=== PATIENT | male | born 1950 | race Caucasian/White ===

== ENCOUNTER 2020-07-06 08:07 | Inpatient (IN) | payer OTHER ==
[~2020-07-06] VITALS: Ht 185.4 cm; Wt 65.3 kg
[~2020-07-06 08:07] MED LIST: ACETAMINOPHEN325 M1 PO; ADVAIR HFA 1112 UNIT INH; ALBUTEROL SULFAT4 MG PO; AVELOX 400 MG400 MG PO; AZITHROMYCIN 2250 MG PO; COMBIVENT INH; CORICIDIN HBP1 EACH PO; DILANTIN100 MG PO; DOXYCYCLINE 10100 M1 PO; DUONEB 2.5-0.5 M3 ML INH; FEVERALL650 MG RECTAL; FLEXERIL PO; FOLIC ACID1 MG PO; LEVAQUIN 500 M500 M2 PO; LORAZEPAM 22 MG/1 ML PO; METHOTREXA25 MG/1 M7 INJECTION; METHOTREXA25 MG/1 ML SUBQ; METHOTREXATE 22.5 MG GT; METHOTREXATE 22.5 MG PO; MOBIC15 MG PO; MSL20MG/ML SUBLING; MUCINEX TA600 MG/TA1 PO; PREDNISONE 10 M10 M1 PO; PREDNISONE 20 M20 M1 PO; PRILOSEC 20 MG20 MG PO; SINGULAIR 10 MG10 M1 PO; SYMBICORT160 MCG/4. INH; TREXALL15 MG PO; TYLENOL325 MG PO; VITAMIN D-32000 UNI1 PO; ZESTRIL10 MG PO; ZPAK PO
[2020-07-06 08:10] VITALS: BP 166/119
[2020-07-06 09:08] LABS: HEMATOCRIT 54.4 % (42.0-52.0); HEMOGLOBIN 17.4 gm/dL (14.0-18.0); MCH 29.5 pg (26.0-34.0); MCV 92.1 fL (80.0-100.0); MPV 8.2 fl. (7.2-11.1); NUCLEATED RBCS 0 /100WBC; PLATELET COUNT* 298 thou/uL (150-400); RBC 5.91 mil/uL (4.50-6.00); RDW-CV 16.1 % (10.5-14.5); WBC 11.3 thou/uL (4.0-11.0)
[2020-07-06 09:18] LABS: CALCIUM 9.4 mg/dL (8.5-10.1); CREATININE 0.9 mg/dL (0.6-1.3); POTASSIUM 4.1 mmol/L (3.5-5.1)
[2020-07-06 09:23] LABS: ALBUMIN 2.3 g/dL (3.4-5.0); TOTAL BILIRUBIN 1.3 mg/dL (<0.1-1.0); TOTAL PROTEIN 7.5 g/dL (6.4-8.2)
[2020-07-06 09:23] LABS: APTT 25.5 Seconds (25.0-31.3); INR 1.1; PROTIME 11.9 Seconds (9.20-11.50)
--- NOTE | 2020-07-06 09:54 | EKG ---
[place] [address] ELECTROCARDIOGRAM REPORT Name: KAJAL RAI Room: [facility]#: [id number] Admission: 07/06/20 Attend Phys: Discharge: Date of : 50 Date of Service: 07/06/20813 Report #: [id number] THIS REPORT FOR: //name// [facility] ED Test Date: 2020-07-06 Test Time: 08:14:04 Pat Name: KAJAL RAI Department: Room: Gender: Game Room Attendant: [facility] : 1950 Requested By: Joseph Regalado Order Number: [id number] MD: Martin Borges Measurements Intervals [place] Rate: 119 P: 90 IN: 140 QRS: 66 QRSD: 135 T: 57 QT: 357 QTc: 503 Interpretive Statements Sinus tachycardia Right bundle branch block Compared to ECG 09/26/2014 17:28:04 Right bundle-branch block now present Atrial premature complex(es) no longer present Electronically Signed On 07-06-2020 9:54:12 PHARMACY ANCILLARY by Martin Borges [email or web address] <ELECTRONICALLY SIGNED> By: Martin Borges MD, FAC 07/06/20 0954 3 3 Martin Borges MD, [facility] /EPI
[2020-07-06 10:14] LABS: ABSOLUTE LYMPHOCYTES 0.6 thou/uL (0.8-5.3); ABSOLUTE NEUTROPHILS 10.7 thou/uL (1.6-8.1)
[2020-07-06 10:15] LABS: PLATELET ESTIMATE ADEQUATE
[2020-07-06 12:59] LABS: CLARITY HAZY; SOURCE PLEURAL FLUID; TOTAL VOLUME 1360 ml
[2020-07-06 14:01] LABS: BF LYMPHOCYTES 51 %; BF MONOCYTES 1 %; BF POLYS 24 %; BF TISSUE 24 /100 WBC; BODY FLUID BANDS 0 %; TOTAL CELL COUNT 880 /mm3
[2020-07-06 14:30] VITALS: BP 122/84
[2020-07-06 17:08] LABS: BE 0.6 mmol/L (-2 to +3); PO2 121.3 mmHg (75.0-100.0)
[2020-07-06 17:11] LABS: PCO2 101.9 mmHg (35.0-45.0); pH 7.145 (7.340-7.450)
[2020-07-06 18:33] VITALS: BP 139/93
[2020-07-06 19:44] LABS: BE 3.1 mmol/L (-2 to +3)
[2020-07-06 19:48] LABS: PCO2 86.2 mmHg (35.0-45.0); pH 7.223 (7.340-7.450)
[2020-07-06 19:52] VITALS: BP 116/78
[2020-07-06 21:00] VITALS: BP 140/94
[2020-07-07] VITALS (7 sets, daily range): BP systolic 96–174; BP diastolic 69–100
[2020-07-07 05:03] LABS: ABSOLUTE LYMPHOCYTES 0.2 thou/uL (0.8-5.3); ABSOLUTE MONOCYTES 0.2 thou/uL (0.0-1.2); ABSOLUTE NEUTROPHILS 7.5 thou/uL (1.6-8.1); BASOPHILS 0.3 %; HEMATOCRIT 49.6 % (42.0-52.0); LYMPHOCYTES 2.3 %; MCH 28.8 pg (26.0-34.0); MONOCYTES 2.3 %; MPV 8.1 fl. (7.2-11.1); NUCLEATED RBCS 0 /100WBC; PLATELET COUNT* 273 thou/uL (150-400); POLYS 95.1 %; RBC 5.33 mil/uL (4.50-6.00); RDW-CV 16.3 % (10.5-14.5); WBC 7.9 thou/uL (4.0-11.0)
[2020-07-07 05:10] LABS: HEMOGLOBIN 15.4 gm/dL (14.0-18.0)
[2020-07-07 05:22] LABS: CALCIUM 9.3 mg/dL (8.5-10.1); POTASSIUM 4.4 mmol/L (3.5-5.1); TOTAL BILIRUBIN 0.9 mg/dL (<0.1-1.0); TOTAL PROTEIN 6.4 g/dL (6.4-8.2)
[2020-07-07 11:00] LABS: PO2 63.4 mmHg (75.0-100.0)
[2020-07-07 11:04] LABS: PCO2 61.3 mmHg (35.0-45.0)
--- NOTE | 2020-07-07 12:15 | 2DMMODE ---
[place] [address] 2 D/M-MODE ECHOCARDIOGRAM Name: KAJAL RAI Nisa Room: [address] IN [facility]#: [id number] Admission: 07/06/20 Attend Phys: Anmol Mcleod, Discharge: Date of : 50 Date of Service: 07/07/20 1215 Report #: [id number] THIS REPORT FOR: cc: Matias Irby MD, Jason MD Blick,Curt Pappas MD [facility] ~ APPROVED REPORT Study performed: 07/07/2020 10:48:04 EXAM: Comprehensive 2D, Doppler, and color-flow Echocardiogram Patient Location: In-Patient Room #: [facility] Status: routine BSA: 1.77 HR: 76 bpm BP: 123/80 mmHg Rhythm: NSR Other Information Study Quality: Good Indications CVA/TIA Dyspnea Echo Enhancing Agent Indication: Rule out Shunt Agent(s) / Amount(s) Used: Agitated Saline 10 cc 2D Dimensions IVSd: 9.73 (7-11mm) LVOT Diam: 21.19 (18-24mm) LVDd: 40.70 mm PWd: 11.43 (7-11mm) LVDs: 33.91 (25-40mm) Aortic Root: 35.50 mm Aortic Valve AoV Peak Dexter.: 0.87 m/s AO Peak Gr.: 3.05 mmHg LVOT Max P.67 mmHg AO Mean Gr.: 1.99 mmHg LVOT Mean P.24 mmHg LVOT Max V: 0.82 m/s AO V2 VTI: 13.71 cm LVOT Mean V: 0.51 m/s DEWAYNE (VTI): 3.38 cm2 LVOT V1 VTI: 13.13 [place] [address] 2 D/M-MODE ECHOCARDIOGRAM Name: KAJAL RAI Room: [address] IN ..#: [id number] Admission: 07/06/20 Attend Phys: Anmol Mcleod, Discharge: Date of : 50 Date of Service: 07/07/20 1215 Report #: [id number] Mitral Valve E/A Ratio: 0.63 MV Decel. Time: 277.64 ms MV E Max Dexter.: 0.53 m/s MV PHT: 80.52 ms MVA (PHT): 2.73 cm2 TDI E/Lateral E': 7.57 E/Medial E': 7.57 Medial E' Dexter.: 0.07 m/s Lateral E' Dexter.: 0.07 m/s Tricuspid Valve RAP Estimate: 10.00 mmHg TR Peak Gr.: 33.05 mmHg RVSP: 43.00 mmHg PA Pressure: 43.00 mmHg Left Ventricle The left ventricle is normal size. There is global hypokinesis of the left ventricle. There is normal left ventricular wall thickness. Left ventricular systolic function is mildly decreased. LVEF is 40-45%. Grade I - abnormal relaxation pattern. Right Ventricle Right ventricle is dilated. Right ventricle is mildly hypokinetic. Atria The left atrium size is normal. PFO is noted. Injection of contrast documented an interatrial shunt. Right atrium is dilated. Aortic Valve The aortic valve is normal in structure. No aortic regurgitation is present. There is no aortic valvular stenosis. Mitral Valve The mitral valve is normal in structure. There is trace mitral valve regurgitation noted. No evidence of mitral valve stenosis. Tricuspid Valve The tricuspid valve is normal in structure. Mild tricuspid regurgitation. estimated pa pressure 45 mm Hg Pulmonic Valve Pulmonic valve is not well visualized. There is [place] [address] 2 D/M-MODE ECHOCARDIOGRAM Name: KAJAL RAI Room: [address] IN [facility]#: [id number] Admission: 07/06/20 Attend Phys: Anmol Mcleod, Discharge: Date of : 50 Date of Service: 07/07/20 1215 Report #: [id number] regurgitation. Great Vessels The aortic root is normal in size. IVC is dilated. Pericardium There is no pericardial effusion. <Conclusion> LVEF is 40-45%. Right ventricle is dilated. Right atrium is dilated. PFO is noted. Injection of contrast documented an interatrial shunt. Mild tricuspid regurgitation. estimated pa pressure 45 mm Hg <ELECTRONICALLY SIGNED> By: Curt Goetz MD, FACC 07/07/20 1215 Curt Goetz MD, FACC /INF
[2020-07-08 02:06] LABS: BODY FLUID PH 8.1 (Not Estab.)
[2020-07-08 04:33] VITALS: BP 137/62
[2020-07-08 04:38] LABS: MAGNESIUM 2.2 mg/dL (1.8-2.4); POTASSIUM 4.3 mmol/L (3.5-5.1)
[2020-07-08 08:00] VITALS: BP 106/70
[2020-07-08 08:39] LABS: CHOLESTEROL 123 mg/dL (<200); HDL CHOLESTEROL 42 mg/dL (>40); LDL CHOLESTEROL 68 mg/dL (<100); TC:HDL 2.9 Ratio (Not establshd); TRIGLYCERIDE 68 mg/dL (<150); VLDL 14 mg/dL (<40)
[2020-07-08 08:42] LABS: SERUM ASSESSMENT Clear
[2020-07-08 12:00] VITALS: BP 128/95
[2020-07-08 12:20] LABS: BE 6.7 mmol/L (-2 to +3)
[2020-07-08 12:24] LABS: PCO2 64.7 mmHg (35.0-45.0); PO2 59.9 mmHg (75.0-100.0)
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
[2020-07-08 20:00] VITALS: BP 110/68
[2020-07-09] VITALS: BP 102/63
[2020-07-09 02:06] LABS: GLYCOHEMOGLOBIN (HGB A1C) 6.7 % (4.8-5.6)
[2020-07-09 04:24] LABS: ANION GAP < 0 mmol/L (7-16); BUN 34 mg/dL (7-18); CALCIUM 9.2 mg/dL (8.5-10.1); CHLORIDE 103 mmol/L (98-107); CO2 36 mmol/L (21-32); CREATININE 0.9 mg/dL (0.6-1.3); GLUCOSE 184 mg/dL (70-99); POTASSIUM 4.7 mmol/L (3.5-5.1); SODIUM 138 mmol/L (136-145)
[2020-07-09 05:36] VITALS: BP 124/66
[2020-07-09 08:20] VITALS: BP 102/67
[2020-07-09 08:32] LABS: SOURCE THORACENTESIS
[2020-07-09 09:00] VITALS: BP 102/67
--- NOTE | 2020-07-09 10:08 | PATH ---
[address] [address] PATHOLOGY RPT PROCEDURE Name: KAJAL RAI Room: [address] IN [facility]#: [id number] Admission: 07/06/20 Date of : 50 Discharge: Report #: [id number] Path Case #: [id number] Note [facility] Accession Number: [id number] TESTS RESULT FLAG UNITS REF RANGE LAB Clinician Provided Cytology Information No. of containers..01 Other (Miscellaneous) Source: RIGHT PLEURAL FLUID DIAGNOSIS: 02 RIGHT PLEURAL FLUID NO MALIGNANT CELLS IDENTIFIED. LOW CELLULARITY WITH FEW REACTIVE MESOTHELIAL CELLS AND INFLAMMATORY CELLS. THIS INTERPRETATION INCLUDES EVALUATION OF A CELL BLOCK. Signed out by: 02 Wilmar Leger MD, Pathologist NPI- [id number] Performed by: 01 Julissa Bo, Toxicologist ([facility]) Gross description: 01 5ML, CLOUDY YELLOW, 1 TP 1 CB /LCS 07/07/2020 1824 Local FLAG LEGEND: L-Low Normal,H-High Normal,LL-Alert Low,HH-Alert High <-Panic Low,>-Panic High,A-Abnormal,AA-Critical Abnormal Performed at: [address] [place] [address] Jesus Dailey MD, [address] [place] [phone] Wilmar Leger MD, Specimen Comment: A courtesy copy of this report has been sent to [phone] Specimen Comment: Report sent to Specimen Comment: A duplicate report has been generated due to demographic updates. Performed at: [address], [place], [place] [id number] MD Jesus Dailey MD Phone: [phone]
[2020-07-09 14:00] VITALS: BP 96/68
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
[2020-07-09 20:28] VITALS: BP 101/67
[2020-07-10] VITALS: BP 91/55
[2020-07-10 16:00] VITALS: BP 104/76
[2020-07-10 20:00] VITALS: BP 112/76
[2020-07-11 05:44] VITALS: BP 110/76
[2020-07-11 15:43] LABS: HEMOGLOBIN 16.4 gm/dL (14.0-18.0); MCH 29.4 pg (26.0-34.0); MCHC 31.6 g/dL (28.0-37.0); MPV 8.1 fl. (7.2-11.1); RBC 5.59 mil/uL (4.50-6.00); RDW-CV 16.7 % (10.5-14.5); WBC 10.8 thou/uL (4.0-11.0)
[2020-07-11 15:44] LABS: PO2 76.3 mmHg (75.0-100.0)
[2020-07-11 15:53] LABS: ANION GAP < 0 mmol/L (7-16); BUN 42 mg/dL (7-18); CALCIUM 9.7 mg/dL (8.5-10.1); CHLORIDE 99 mmol/L (98-107); CO2 38 mmol/L (21-32); GLUCOSE 147 mg/dL (70-99); POTASSIUM 5.9 mmol/L (3.5-5.1); SODIUM 136 mmol/L (136-145)
[2020-07-11 16:00] VITALS: BP 107/83
[2020-07-11 20:00] VITALS: BP 119/81
[2020-07-12] VITALS: BP 132/86
[2020-07-12 04:00] VITALS: BP 108/67
[2020-07-12 04:44] LABS: HEMATOCRIT 48.5 % (42.0-52.0); HEMOGLOBIN 15.3 gm/dL (14.0-18.0); MCH 29.5 pg (26.0-34.0); MCHC 31.5 g/dL (28.0-37.0); MCV 93.6 fL (80.0-100.0); MPV 8.4 fl. (7.2-11.1); NUCLEATED RBCS 1 /100WBC; PLATELET COUNT* 269 thou/uL (150-400); RBC 5.18 mil/uL (4.50-6.00); RDW-CV 16.1 % (10.5-14.5); WBC 10.5 thou/uL (4.0-11.0)
[2020-07-12 04:48] LABS: ANION GAP < 0 mmol/L (7-16); BUN 39 mg/dL (7-18); CALCIUM 9.7 mg/dL (8.5-10.1); CHLORIDE 103 mmol/L (98-107); CO2 39 mmol/L (21-32); CREATININE 0.9 mg/dL (0.6-1.3); GLUCOSE 129 mg/dL (70-99); POTASSIUM 5.4 mmol/L (3.5-5.1); SODIUM 140 mmol/L (136-145)
[2020-07-12 06:25] LABS: ABSOLUTE LYMPHOCYTES 0.7 thou/uL (0.8-5.3); ABSOLUTE MONOCYTES 0.2 thou/uL (0.0-1.2); ABSOLUTE NEUTROPHILS 9.6 thou/uL (1.6-8.1); ATYPICAL LYMPHS 5 %; METAMYELOCYTES 1 %; PLATELET ESTIMATE ADEQUATE
[2020-07-12 08:00] VITALS: BP 97/64
[2020-07-12 14:07] LABS: GLOBULIN TOTAL 3.5 g/dL (2.2-3.9); M-SPIKE Not Observed g/dL (Not Observed)
[2020-07-12 15:49] LABS: URINE BILIRUBIN NEGATIVE (Negative); URINE BLOOD 2+ (Negative); URINE CLARITY HAZY; URINE COLOR YELLOW; URINE GLUCOSE-RANDOM NEGATIVE (Negative); URINE KETONES NEGATIVE (Negative); URINE LEUKOCYTES NEGATIVE (Negative); URINE NITRITE NEGATIVE (Negative); URINE PROTEIN NEGATIVE (Negative)
[2020-07-12 16:00] VITALS: BP 116/79
[2020-07-12 16:10] LABS: HYALINE CASTS >10 Many /LPF (None Seen); MUCUS None Seen strn/LPF (None Seen); SQUAMOUS 0-3 Few /LPF (0-3)
[2020-07-12 16:11] LABS: BACTERIA 1-9 Few /HPF (None Seen); CRYSTALS None Seen /LPF (None Seen); URINE WBC 6-15 Few /HPF (0-5)
[2020-07-12 16:12] LABS: URINE RBC 3-10 Few /HPF (0-2)
--- NOTE | 2020-07-12 17:06 | EKG ---
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: KF : 1950 Requested By: Don Lu Order Number: [id number] Josefina MD: Josef Li Measurements Intervals [place] Rate: 92 P: 92 IA: 140 QRS: 22 QRSD: 120 T: 25 QT: 365 QTc: 452 Interpretive Statements Sinus rhythm Left atrial enlargement RBBB and LPFB Compared to ECG 07/06/2020 08:14:04 Atrial abnormality now present Left posterior fascicular block now present Sinus tachycardia no longer present Electronically Signed On 07-12-2020 17:06:47 AUTOMOTIVE QUALITY MANAGER by Josef Li [email or web address] <ELECTRONICALLY SIGNED> By: Josef Li MD, FAC 07/12/20 1706 1434 1434 Josef Li MD, FAC /EPI
[2020-07-12 18:36] LABS: ANION GAP < 0 mmol/L (7-16); BUN 35 mg/dL (7-18); CALCIUM 9.4 mg/dL (8.5-10.1); CHLORIDE 101 mmol/L (98-107); CO2 40 mmol/L (21-32); CREATININE 0.8 mg/dL (0.6-1.3); GLUCOSE 84 mg/dL (70-99); POTASSIUM 5.3 mmol/L (3.5-5.1); SODIUM 140 mmol/L (136-145)
[2020-07-12 19:00] VITALS: BP 119/77
[2020-07-12 19:15] LABS: BE 10.7 mmol/L (-2 to +3); pH 7.351 (7.340-7.450)
[2020-07-12 19:19] LABS: HEMATOCRIT 48.7 % (42.0-52.0); HEMOGLOBIN 15.2 gm/dL (14.0-18.0); MCH 28.9 pg (26.0-34.0); MCHC 31.2 g/dL (28.0-37.0); MCV 92.8 fL (80.0-100.0); MPV 7.9 fl. (7.2-11.1); RBC 5.25 mil/uL (4.50-6.00); RDW-CV 16.6 % (10.5-14.5); WBC 12.7 thou/uL (4.0-11.0)
[2020-07-12 19:20] LABS: PCO2 74.2 mmHg (35.0-45.0); PO2 58.1 mmHg (75.0-100.0)
[2020-07-12 19:33] LABS: CALCIUM 9.6 mg/dL (8.5-10.1); CREATININE 0.8 mg/dL (0.6-1.3); POTASSIUM 5.2 mmol/L (3.5-5.1)
[2020-07-12 20:00] VITALS: BP 105/83
[2020-07-13] VITALS (16 sets, daily range): BP systolic 90–138; BP diastolic 5–94
[2020-07-13 04:37] LABS: ABSOLUTE LYMPHOCYTES 0.2 thou/uL (0.8-5.3); ABSOLUTE MONOCYTES 0.1 thou/uL (0.0-1.2); HEMATOCRIT 44.4 % (42.0-52.0); HEMOGLOBIN 14.2 gm/dL (14.0-18.0); LYMPHOCYTES 1.8 %; MCH 29.4 pg (26.0-34.0); MCHC 31.9 g/dL (28.0-37.0); MCV 92.2 fL (80.0-100.0); MONOCYTES 0.9 %; MPV 8.5 fl. (7.2-11.1); NUCLEATED RBCS 0 /100WBC; PLATELET COUNT* 248 thou/uL (150-400); POLYS 97.3 %; RBC 4.82 mil/uL (4.50-6.00); RDW-CV 16.2 % (10.5-14.5); WBC 10.2 thou/uL (4.0-11.0)
[2020-07-13 05:41] LABS: ALBUMIN 2.3 g/dL (3.4-5.0); ALKALINE PHOSPHATASE 101 U/L (46-116); ANION GAP < 0 mmol/L (7-16); BUN 38 mg/dL (7-18); CALCIUM 9.1 mg/dL (8.5-10.1); CHLORIDE 101 mmol/L (98-107); CO2 42 mmol/L (21-32); CREATININE 0.9 mg/dL (0.6-1.3); GLUCOSE 88 mg/dL (70-99); MAGNESIUM 2.2 mg/dL (1.8-2.4); PHOSPHORUS* 4.3 mg/dL (2.5-4.9); POTASSIUM 4.9 mmol/L (3.5-5.1); SGOT 31 U/L (15-37); SGPT 38 U/L (30-65); SODIUM 141 mmol/L (136-145); TOTAL BILIRUBIN 0.8 mg/dL (<0.1-1.0); TOTAL PROTEIN 5.7 g/dL (6.4-8.2)
[2020-07-13 15:46] LABS: BF RBC 1706 /mm3; TOTAL CELL COUNT 466 /mm3
[2020-07-13 16:08] LABS: SOURCE RIGHT THORACENTESIS
[2020-07-13 16:09] LABS: CLARITY CLOUDY; TOTAL VOLUME 460 ml
[2020-07-13 16:26] LABS: BF LYMPHOCYTES 83 %; BF POLYS 17 %
[2020-07-14] VITALS (78 sets, daily range): BP systolic 81–136; BP diastolic 53–88
[2020-07-14 04:28] LABS: ABSOLUTE LYMPHOCYTES 0.5 thou/uL (0.8-5.3); ABSOLUTE MONOCYTES 0.7 thou/uL (0.0-1.2); ABSOLUTE NEUTROPHILS 9.5 thou/uL (1.6-8.1); BASOPHILS 0.2 %; HEMATOCRIT 41.2 % (42.0-52.0); LYMPHOCYTES 4.9 %; MCH 28.9 pg (26.0-34.0); MCHC 31.5 g/dL (28.0-37.0); MCV 91.9 fL (80.0-100.0); MONOCYTES 6.9 %; MPV 7.7 fl. (7.2-11.1); NUCLEATED RBCS 0 /100WBC; PLATELET COUNT* 237 thou/uL (150-400); RBC 4.48 mil/uL (4.50-6.00); RDW-CV 15.8 % (10.5-14.5); WBC 10.7 thou/uL (4.0-11.0)
[2020-07-14 04:41] LABS: ALBUMIN 2.8 g/dL (3.4-5.0); ALKALINE PHOSPHATASE 92 U/L (46-116); ANION GAP < 0 mmol/L (7-16); BUN 36 mg/dL (7-18); CALCIUM 9.1 mg/dL (8.5-10.1); CHLORIDE 101 mmol/L (98-107); CO2 42 mmol/L (21-32); CREATININE 0.8 mg/dL (0.6-1.3); GLUCOSE 114 mg/dL (70-99); MAGNESIUM 2.2 mg/dL (1.8-2.4); POTASSIUM 4.5 mmol/L (3.5-5.1); SGOT 23 U/L (15-37); SGPT 34 U/L (30-65); SODIUM 141 mmol/L (136-145); TOTAL BILIRUBIN 0.8 mg/dL (<0.1-1.0); TOTAL PROTEIN 5.7 g/dL (6.4-8.2)
[2020-07-14 08:34] LABS: BE 12.4 mmol/L (-2 to +3); pH 7.412 (7.340-7.450)
[2020-07-14 08:37] LABS: PCO2 64.3 mmHg (35.0-45.0)
--- NOTE | 2020-07-14 14:56 | EEG ---
[address] [address] EEG STUDY REPORT Name: KAJAL RAI Room: [address] IN M.R.#: [id number] Admission: 07/06/20 Attend Phys: Anmol Mcleod MD Discharge: Date of : 50 Report #: [id number] THIS REPORT FOR: cc: Matias Irby MD, Jason MD ~ Carlos Stephens MD DATE OF SERVICE: 07/07/2020 This patient is being evaluated for altered mental status. EEG was done by placing the electrode by standard 10-20 system of electrode placement. Both referential and sequential montages were used for recording. Background activity in this patient's EEG is about 7 Hz and 30 microvolt. Photic stimulation is unremarkable. The patient became drowsy that is associated with bilateral slowing and vertex sharp waves. Throughout the record, no active epileptiform activity was noticed. IMPRESSION: This patient's EEG is intermixed with theta range slowing on both sides. That is a nonspecific abnormality, which can occur with encephalopathy, effect of psychotropic medication, dementia, etc. Clinical correlation is recommended. <ELECTRONICALLY SIGNED> By: Carlos Stephens MD 07/14/20 1456 1346 [id number] Stephens MD /nt
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
[2020-07-15] VITALS (30 sets, daily range): BP systolic 100–143; BP diastolic 60–98
[2020-07-15 05:32] LABS: ABSOLUTE LYMPHOCYTES 0.3 thou/uL (0.8-5.3); ABSOLUTE MONOCYTES 0.6 thou/uL (0.0-1.2); ABSOLUTE NEUTROPHILS 8.2 thou/uL (1.6-8.1); HEMATOCRIT 39.8 % (42.0-52.0); HEMOGLOBIN 12.7 gm/dL (14.0-18.0); LYMPHOCYTES 3.8 %; MCH 29.1 pg (26.0-34.0); MCV 91.1 fL (80.0-100.0); MONOCYTES 6.1 %; NUCLEATED RBCS 0 /100WBC; PLATELET COUNT* 219 thou/uL (150-400); POLYS 90.1 %; RBC 4.37 mil/uL (4.50-6.00); RDW-CV 16.1 % (10.5-14.5); WBC 9.1 thou/uL (4.0-11.0)
[2020-07-15 05:41] LABS: CREATININE 0.8 mg/dL (0.6-1.3); MAGNESIUM 2.3 mg/dL (1.8-2.4)
[2020-07-16] VITALS (8 sets, daily range): BP systolic 94–160; BP diastolic 60–95
[2020-07-16 05:36] LABS: HEMATOCRIT 43.3 % (42.0-52.0); HEMOGLOBIN 13.7 gm/dL (14.0-18.0); MCH 28.7 pg (26.0-34.0); MCHC 31.6 g/dL (28.0-37.0); MCV 90.8 fL (80.0-100.0); MPV 8.4 fl. (7.2-11.1); NUCLEATED RBCS 0 /100WBC; PLATELET COUNT* 255 thou/uL (150-400); RBC 4.76 mil/uL (4.50-6.00); RDW-CV 15.9 % (10.5-14.5); WBC 11.1 thou/uL (4.0-11.0)
[2020-07-16 05:46] LABS: ALBUMIN 2.6 g/dL (3.4-5.0); CALCIUM 8.3 mg/dL (8.5-10.1); CREATININE 0.7 mg/dL (0.6-1.3); POTASSIUM 4.2 mmol/L (3.5-5.1); TOTAL BILIRUBIN 0.9 mg/dL (<0.1-1.0); TOTAL PROTEIN 5.7 g/dL (6.4-8.2)
[2020-07-16 06:44] LABS: ABSOLUTE LYMPHOCYTES 0.6 thou/uL (0.8-5.3); ABSOLUTE MONOCYTES 0.3 thou/uL (0.0-1.2); ABSOLUTE NEUTROPHILS 10.2 thou/uL (1.6-8.1)
[2020-07-16 06:45] LABS: MICROCYTES Occasional; PLATELET ESTIMATE ADEQUATE; TARGET CELLS 1+
[2020-07-16 06:46] LABS: SCHISTOCYTES Occasional
--- NOTE | 2020-07-16 13:08 | PATH ---
[address] [address] PATHOLOGY RPT PROCEDURE Name: KAJAL RAI Room: [address] IN [facility]#: [id number] Admission: 07/06/20 Date of : 50 Discharge: Report #: [id number] Path Case #: [id number] Note [facility] Accession Number: [id number] TESTS RESULT FLAG UNITS REF RANGE LAB Clinician Provided Cytology Information No. of containers..01 Other (Miscellaneous) Source: RIGHT PLEURAL FLUID DIAGNOSIS: 02 RIGHT PLEURAL FLUID INCONCLUSIVE. MESOTHELIAL CELLS ARE PRESENT. THIS INTERPRETATION INCLUDES EVALUATION OF A CELL BLOCK. COMMENT, A RARE GROUP OF MILDLY ATYPICAL CELLS PRESENT ON THIN PREP BUT NOT ON CELL BLOCK SO IMMUNOPEROXIDASE STAIN NOT PERFORMED. SUGGEST CLINICAL CORRELATION. Signed out by: Rupa Dailey MD, Pathologist NPI- [id number] Performed by: Viry Bo, Gameplay Programmer ([facility]) Gross description: 01 90ML, CLOUDY YELLOW, 1 TP 1 CB /LCS 07/14/2020 1839 Local FLAG LEGEND: L-Low Normal,H-High Normal,LL-Alert Low,HH-Alert High <-Panic Low,>-Panic High,A-Abnormal,AA-Critical Abnormal Performed at: [address] [place] [address] Jesus Dailey MD, [address] [address] Robyn Bailey MD, Specimen Comment: A courtesy copy of this report has been sent to [phone], [phone] Specimen Comment: [phone], Specimen Comment: Report sent to ,DR CANTRELL / DR NAGY Specimen Comment: A duplicate report has been generated due to demographic updates. Performed at: [address], [place], [place] [id number] [place] [address] PATHOLOGY RPT PROCEDURE Name: KAJAL RAI Room: [address] IN [facility]#: [id number] Admission: 07/06/20 Date of : 50 Discharge: Report #: [id number] Path Case #: [id number] [facility] MD Phone: [phone]
[2020-07-16 15:07] LABS: BODY FLUID PROTEIN 1.6 g/dL (())
[2020-07-17 04:33] VITALS: BP 113/76
[2020-07-17 04:54] LABS: ABSOLUTE EOSINOPHILS 0.1 thou/uL (0.0-0.7); ABSOLUTE LYMPHOCYTES 1.1 thou/uL (0.8-5.3); ABSOLUTE MONOCYTES 1.1 thou/uL (0.0-1.2); ABSOLUTE NEUTROPHILS 9.2 thou/uL (1.6-8.1); BASOPHILS 0.1 %; EOSINOPHILS 0.7 %; HEMATOCRIT 29.8 % (42.0-52.0); LYMPHOCYTES 9.8 %; MCHC 32.1 g/dL (28.0-37.0); MCV 90.5 fL (80.0-100.0); MONOCYTES 9.3 %; MPV 8.5 fl. (7.2-11.1); NUCLEATED RBCS 0 /100WBC; PLATELET COUNT* 187 thou/uL (150-400); POLYS 80.1 %; RBC 3.29 mil/uL (4.50-6.00); RDW-CV 15.6 % (10.5-14.5); WBC 11.5 thou/uL (4.0-11.0)
[2020-07-17 05:26] LABS: ALKALINE PHOSPHATASE 81 U/L (46-116); ANION GAP < 0 mmol/L (7-16); BUN 24 mg/dL (7-18); CALCIUM 8.4 mg/dL (8.5-10.1); CHLORIDE 100 mmol/L (98-107); CO2 37 mmol/L (21-32); CREATININE 0.6 mg/dL (0.6-1.3); GLUCOSE 90 mg/dL (70-99); POTASSIUM 4.3 mmol/L (3.5-5.1); SGOT 28 U/L (15-37); SGPT 35 U/L (30-65); SODIUM 136 mmol/L (136-145); TOTAL BILIRUBIN 0.7 mg/dL (<0.1-1.0); TOTAL PROTEIN 4.5 g/dL (6.4-8.2)
[2020-07-17 06:05] LABS: HEMOGLOBIN 9.6 gm/dL (14.0-18.0)
[2020-07-17 12:39] VITALS: BP 109/61
[2020-07-17 17:09] VITALS: BP 94/66
[2020-07-17 20:09] VITALS: BP 104/66
[2020-07-17 23:36] VITALS: BP 110/68
[2020-07-18 04:19] LABS: ABSOLUTE MONOCYTES 0.8 thou/uL (0.0-1.2); ABSOLUTE NEUTROPHILS 8.9 thou/uL (1.6-8.1); BASOPHILS 0.1 %; EOSINOPHILS 0.3 %; HEMATOCRIT 26.4 % (42.0-52.0); HEMOGLOBIN 8.6 gm/dL (14.0-18.0); LYMPHOCYTES 9.7 %; MCH 29.2 pg (26.0-34.0); MCHC 32.6 g/dL (28.0-37.0); MCV 89.5 fL (80.0-100.0); MONOCYTES 7.1 %; MPV 8.3 fl. (7.2-11.1); NUCLEATED RBCS 0 /100WBC; PLATELET COUNT* 177 thou/uL (150-400); POLYS 82.8 %; RBC 2.95 mil/uL (4.50-6.00); RDW-CV 15.7 % (10.5-14.5); WBC 10.7 thou/uL (4.0-11.0)
[2020-07-18 04:24] VITALS: BP 101/64; BP 110/59
[2020-07-18 04:28] LABS: CALCIUM 8.7 mg/dL (8.5-10.1); CREATININE 0.6 mg/dL (0.6-1.3); POTASSIUM 4.7 mmol/L (3.5-5.1)
[2020-07-18 08:00] VITALS: BP 143/83
[2020-07-18 12:00] VITALS: BP 84/60
[2020-07-18 16:00] VITALS: BP 88/52
[2020-07-18 20:00] VITALS: BP 97/59
[2020-07-18 23:29] VITALS: BP 81/2
[2020-07-19 05:28] VITALS: BP 85/67
[2020-07-19 05:55] LABS: ABSOLUTE EOSINOPHILS 0.2 thou/uL (0.0-0.7); ABSOLUTE LYMPHOCYTES 1.5 thou/uL (0.8-5.3); ABSOLUTE NEUTROPHILS 8.2 thou/uL (1.6-8.1); BASOPHILS 0.2 %; EOSINOPHILS 1.4 %; HEMATOCRIT 24.3 % (42.0-52.0); HEMOGLOBIN 7.8 gm/dL (14.0-18.0); LYMPHOCYTES 13.6 %; MCH 29.2 pg (26.0-34.0); MCHC 32.1 g/dL (28.0-37.0); MCV 91.1 fL (80.0-100.0); MONOCYTES 9.5 %; MPV 7.6 fl. (7.2-11.1); NUCLEATED RBCS 0 /100WBC; PLATELET COUNT* 193 thou/uL (150-400); POLYS 75.3 %; RBC 2.66 mil/uL (4.50-6.00); WBC 10.8 thou/uL (4.0-11.0)
[2020-07-19 06:01] LABS: ANION GAP < 0 mmol/L (7-16); BUN 27 mg/dL (7-18); CALCIUM 7.7 mg/dL (8.5-10.1); CHLORIDE 103 mmol/L (98-107); CO2 37 mmol/L (21-32); CREATININE 0.8 mg/dL (0.6-1.3); GLUCOSE 87 mg/dL (70-99); POTASSIUM 4.6 mmol/L (3.5-5.1); SODIUM 139 mmol/L (136-145)
[2020-07-19 08:35] VITALS: BP 115/74
[2020-07-19 11:45] VITALS: BP 103/65
[2020-07-19 16:55] VITALS: BP 109/67
[2020-07-19 20:00] VITALS: BP 113/71
[2020-07-20 00:10] VITALS: BP 94/55
[2020-07-20 04:15] VITALS: BP 115/76
[2020-07-20 08:00] VITALS: BP 127/76
[2020-07-20] MEDS ORDERED: PLAVIX 75 MG TA75 M1 PO (10:38)
[2020-07-20] MEDS ORDERED: ADULT LOW DOSE81 MG PO (10:38)
[2020-07-20] MEDS ORDERED: LIPITOR40 MG PO (10:38)
[2020-07-20] MEDS ORDERED: PREDNISONE 10 M10 MG PO (10:41)
[2020-07-20] MEDS ORDERED: CARVEDILOL3.125 MG PO (10:42)
[2020-07-20] MEDS ORDERED: PROTONIX40 M4 PO (10:42)
[2020-07-20] MEDS ORDERED: MIDODRINE HCL 55 M1 PO (10:49)
[2020-07-20 12:03] VITALS: BP 133/87
[2020-07-20 17:00] VITALS: BP 108/72
[2020-07-20 20:44] VITALS: BP 121/85
[2020-07-21] VITALS: BP 111/71
[2020-07-21 04:00] VITALS: BP 119/73
[2020-07-21 08:00] VITALS: BP 130/83
== END 2020-07-21 17:36 | DRG 64 ==
LOC: M.ERS 08:07 → M.ORTHSURG 10:11 → M.TBA-ER 10:11 → M.ORTHSURG 19:56 → M.2W 07-07 19:04 → M.ICU 07-13 19:32 → M.2W 07-15 16:21
PROVIDERS: Family Medicine; Internal Medicine; Internal Medicine Critical Care Medicine; Nurse Practitioner Family; Psychiatry & Neurology Neurology; Psychiatry & Neurology Neuromuscular Medicine; ADMIT Internal Medicine; ATTEND Internal Medicine
PROC: 0W993ZZ Drainage of Right Pleural Cavity, Percutaneous Approach (ICD-10-PCS; principal; 2020-07-06)
PROC: 5A09357 Assistance with Respiratory Ventilation, Less than 24 Consecutive Hours, Continuous Positive Airway Pressure (ICD-10-PCS; principal; 2020-07-06)
PROC: 5A0935A Assistance with Respiratory Ventilation, Less than 24 Consecutive Hours, High Flow/Velocity Cannula (ICD-10-PCS; 2020-07-10)
PROC: 5A0935A Assistance with Respiratory Ventilation, Less than 24 Consecutive Hours, High Flow/Velocity Cannula (ICD-10-PCS; 2020-07-11)
PROC: 5A09357 Assistance with Respiratory Ventilation, Less than 24 Consecutive Hours, Continuous Positive Airway Pressure (ICD-10-PCS; 2020-07-11)
PROC: 5A09357 Assistance with Respiratory Ventilation, Less than 24 Consecutive Hours, Continuous Positive Airway Pressure (ICD-10-PCS; 2020-07-12)
PROC: 5A09357 Assistance with Respiratory Ventilation, Less than 24 Consecutive Hours, Continuous Positive Airway Pressure (ICD-10-PCS; 2020-07-13)
PROC: 0W993ZZ Drainage of Right Pleural Cavity, Percutaneous Approach (ICD-10-PCS; 2020-07-13)
PROC: B548ZZA Ultrasonography of Superior Vena Cava, Guidance (ICD-10-PCS; 2020-07-14)
PROC: 02HV33Z Insertion of Infusion Device into Superior Vena Cava, Percutaneous Approach (ICD-10-PCS; 2020-07-14)
PROC: 5A0935A Assistance with Respiratory Ventilation, Less than 24 Consecutive Hours, High Flow/Velocity Cannula (ICD-10-PCS; 2020-07-14)
PROC: 5A0935A Assistance with Respiratory Ventilation, Less than 24 Consecutive Hours, High Flow/Velocity Cannula (ICD-10-PCS; 2020-07-15)
PROC: 5A09357 Assistance with Respiratory Ventilation, Less than 24 Consecutive Hours, Continuous Positive Airway Pressure (ICD-10-PCS; 2020-07-15)
PROC: 5A0935A Assistance with Respiratory Ventilation, Less than 24 Consecutive Hours, High Flow/Velocity Cannula (ICD-10-PCS; 2020-07-16)
PROC: 5A09357 Assistance with Respiratory Ventilation, Less than 24 Consecutive Hours, Continuous Positive Airway Pressure (ICD-10-PCS; 2020-07-16)
PROC: 5A09357 Assistance with Respiratory Ventilation, Less than 24 Consecutive Hours, Continuous Positive Airway Pressure (ICD-10-PCS; 2020-07-17)
PROC: 5A0935A Assistance with Respiratory Ventilation, Less than 24 Consecutive Hours, High Flow/Velocity Cannula (ICD-10-PCS; 2020-07-17)
PROC: 5A09357 Assistance with Respiratory Ventilation, Less than 24 Consecutive Hours, Continuous Positive Airway Pressure (ICD-10-PCS; 2020-07-18)
PROC: 5A0935A Assistance with Respiratory Ventilation, Less than 24 Consecutive Hours, High Flow/Velocity Cannula (ICD-10-PCS; 2020-07-18)
PROC: 5A0935A Assistance with Respiratory Ventilation, Less than 24 Consecutive Hours, High Flow/Velocity Cannula (ICD-10-PCS; 2020-07-19)
PROC: 5A09357 Assistance with Respiratory Ventilation, Less than 24 Consecutive Hours, Continuous Positive Airway Pressure (ICD-10-PCS; 2020-07-20)
PROC: 5A0935A Assistance with Respiratory Ventilation, Less than 24 Consecutive Hours, High Flow/Velocity Cannula (ICD-10-PCS; 2020-07-20)
PROC: 5A09357 Assistance with Respiratory Ventilation, Less than 24 Consecutive Hours, Continuous Positive Airway Pressure (ICD-10-PCS; 2020-07-21)
PROC: 5A0935A Assistance with Respiratory Ventilation, Less than 24 Consecutive Hours, High Flow/Velocity Cannula (ICD-10-PCS; 2020-07-21)
DX: I63.89 Other cerebral infarction (principal); J69.0 Pneumonitis due to inhalation of food and vomit; E43 Unspecified severe protein-calorie malnutrition; G92 Toxic encephalopathy; J96.22 Acute and chronic respiratory failure with hypercapnia; J96.01 Acute respiratory failure with hypoxia; J90 Pleural effusion, not elsewhere classified; Z68.1 Body mass index [BMI] 19.9 or less, adult; R65.10 Systemic inflammatory response syndrome (SIRS) of non-infectious origin without acute organ dysfunction; I50.22 Chronic systolic (congestive) heart failure; G81.94 Hemiplegia, unspecified affecting left nondominant side; G40.909 Epilepsy, unspecified, not intractable, without status epilepticus; M06.9 Rheumatoid arthritis, unspecified; Z66 Do not resuscitate; J43.9 Emphysema, unspecified; Z20.822 Contact with and (suspected) exposure to COVID-19; Z88.5 Allergy status to narcotic agent; Z79.899 Other long term (current) drug therapy; Z87.891 Personal history of nicotine dependence; Z91.14 Patient's other noncompliance with medication regimen

== ENCOUNTER 2020-07-31 02:35 | Emergency (ER) | payer OTHER ==
[~2020-07-31] VITALS: Ht 180.3 cm; Wt 58.1 kg
[~2020-07-31 02:35] MED LIST changes: +ADULT LOW DOSE81 MG PO; +CARVEDILOL3.125 MG PO; +LIPITOR40 MG PO; +MIDODRINE HCL 55 M1 PO; +PLAVIX 75 MG TA75 M1 PO; +PREDNISONE 10 M10 MG PO; +PROTONIX40 M4 PO
[2020-07-31 03:02] LABS: BE 7.6 mmol/L (-2 to +3); PO2 76.8 mmHg (75.0-100.0)
[2020-07-31 03:07] LABS: ABSOLUTE EOSINOPHILS 0.1 thou/uL (0.0-0.7); ABSOLUTE LYMPHOCYTES 0.8 thou/uL (0.8-5.3); ABSOLUTE MONOCYTES 0.8 thou/uL (0.0-1.2); ABSOLUTE NEUTROPHILS 7.2 thou/uL (1.6-8.1); BASOPHILS 0.4 %; EOSINOPHILS 1.2 %; HEMATOCRIT 29.3 % (42.0-52.0); HEMOGLOBIN 9.6 gm/dL (14.0-18.0); LYMPHOCYTES 9.2 %; MCH 31.4 pg (26.0-34.0); MCHC 32.7 g/dL (28.0-37.0); MONOCYTES 8.7 %; NUCLEATED RBCS 0 /100WBC; PLATELET COUNT* 389 thou/uL (150-400); POLYS 80.5 %; RBC 3.05 mil/uL (4.50-6.00); RDW-CV 21.5 % (10.5-14.5); WBC 8.9 thou/uL (4.0-11.0)
[2020-07-31 03:14] LABS: CALCIUM 9.3 mg/dL (8.5-10.1); CREATININE 0.6 mg/dL (0.6-1.3)
[2020-07-31 03:15] LABS: PCO2 57.1 mmHg (35.0-45.0)
[2020-07-31 03:25] LABS: ALBUMIN 2.5 g/dL (3.4-5.0); TOTAL BILIRUBIN 0.7 mg/dL (<0.1-1.0); TOTAL PROTEIN 6.1 g/dL (6.4-8.2)
[2020-07-31 04:22] LABS: ANISOCYTOSIS 2+
[2020-07-31 04:23] LABS: PLATELET ESTIMATE ADEQUATE; POLYCHROMASIA 1+
[2020-07-31] MEDS ORDERED: AUGMENTIN 875-1 EACH PO (05:22)
[2020-07-31 06:59] VITALS: BP 140/68
--- NOTE | 2020-08-01 12:17 | EKG ---
[place] [address] ELECTROCARDIOGRAM REPORT Name: KAJAL RAI Room: 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[place] : 1950 Requested By: Savannah Charles Order Number: [id number] MD: Martin Borges Measurements Intervals [place] Rate: 81 P: 98 HI: 150 QRS: 114 QRSD: 148 T: 9 QT: 385 QTc: 447 Interpretive Statements Sinus rhythm Probable left atrial enlargement Right bundle branch block Compared to ECG 07/11/2020 14:34:38 Left posterior fascicular block no longer present Electronically Signed On 08-01-2020 12:16:52 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
== END 2020-07-31 07:00 | disposition home or self-care (01) ==
LOC: M.ERS 02:35
PROVIDERS: Emergency Medicine
DX: J18.9 Pneumonia, unspecified organism (principal); Z20.822 Contact with and (suspected) exposure to COVID-19; M06.9 Rheumatoid arthritis, unspecified; Z88.5 Allergy status to narcotic agent